=== PATIENT | male | born 1985 | race Two or more races ===

== ENCOUNTER → 2023-05-21 | Emergency (ER) | payer OTHER ==
[~2023-05-21] VITALS: Ht 162.6 cm; Wt 57.2 kg
[~2023-05-21] MED LIST: DEXAMETHASONE4 MG PO; LEVOFLOXACIN750 MG PO; MUCINEX DM ER1 EACH PO; SINGULAIR10 MG PO; ZYRTEC10 MG PO
== END | disposition home or self-care (01) ==
LOC: ER 20:09
DX: J06.9 Acute upper respiratory infection, unspecified (principal); R53.81 Other malaise